=== PATIENT | female | born 1950 | race Caucasian/White ===

== ENCOUNTER 2019-01-29 07:37 | Emergency (ER) | payer MEDICARE, OTHER ==
[2019-01-29 07:42] VITALS: BP 137/68
[2019-01-29] MEDS ORDERED: SIMV-49 PO (07:45)
[2019-01-29] MEDS ORDERED: ASPI-1471 PO (07:45)
--- NOTE | 2019-01-29 07:55 | ER Report ---
History and Physical Time Seen By MD: 07:45 Hx. of Stated Complaint: FELL ON WET DRIVEWAY, CAUGHT HERSELF WITH RIGHT HAND. WOKE UP WITH LOTS OF PAIN IN RIGHT WRIST HPI/ROS CHIEF COMPLAINT: Fall right wrist and hand pain HISTORY OF PRESENT ILLNESS: Patient is a 68-year-old female who presents emergency Department status post fall yesterday with complaint of right wrist and hand pain. She is right-hand dominant. She lives in [place], however is visiting friends here in [place]. She states she fell yesterday in her garage on a wet floor. She landed on her tailbone and braced herself with her extended right hand. She is now having pain that extends from her 1st and 2nd metacarpal carpal and goes up her forearm with movement such as holding a glass or with flexion extension of the wrist. Allergies: Coded Allergies: No Known Drug Allergies (Unverified , 01/29/19) Home Meds Reported Medications Aspirin (ASPIR 81) 81 Mg Tablet.dr, 81 MG PO QDAY, TAB 01/29/19 Simvastatin (SIMVASTATIN) 20 Mg Tablet, 20 MG PO HS, TAB 01/29/19 Past Medical/Surgical History Noncontributory Constitutional Physical Exam General appearance: Alert no distress. Examination of the Right hand reveals no acute deformity. The patient is able to give a thumbs up sign, is able to make an okay sign, and is able to AB duct the fingers. Sensation is intact over the dorsal 1st web space, the volar aspect of the 2nd finger, and the volar aspect of the 5th finger. Capillary refill is brisk. Positive Jayy's test. Negative snuffbox tenderness. Medical Decision Making EKG/Imaging Imaging X-ray of right hand and right wrist shows no acute bony injury. ED Course/Re-evaluation ED Course 01/29/2019 7:55:36 am plan at this time will be x-ray of right hand and right wrist. 01/29/2019 8:38:57 am shows unremarkable. We'll place patient in a thumb spica splint and have patient perform range of motion exercises. Procedure: Splint placement. A short arm thumb spica splint was applied. After application of the splint I returned and re-examined the patient. The splint was adequately immobilizing the joint and distal to the splint the patient's circulation and sensation was intact. Decision to Disposition Date: Jan 29, 2019 Decision to Disposition Time: 08:35 Depart Departure Latest Vital Signs Impression: Primary Impression: Wrist sprain Condition: Improved Disposition: HOME OR SELF-CARE Patient Instructions: Splint Care (ED), Wrist Sprain (DC) Additional Instructions: Follow-up with your primary care provider in 7-10 days if your pain persists for reevaluation. Wear your splint as needed for comfort. You should take the splint off 3-4 times per day to perform range of motion exercises for 5 or 10 minutes. You may discontinue use of the splint when you are feeling improved. Problem Qualifiers Primary Impression: Wrist sprain Encounter type: initial encounter Laterality: right Qualified Codes: S63.501A - Unspecified sprain of right wrist, initial encounter DIMITRIS DUEÑAS MD Jan 29, 2019 07:55
--- NOTE | 2019-01-29 08:31 | RADIOLOGY IMAGING REPORT ---
[place] [facility] [place] NAME: Beatrice Levi : 1950 MR: [id number] V: [id number] EXAM DATE: ORDERING PHYSICIAN: DIMITRIS DUEÑAS TECHNOLOGIST: Location: [facility] Patient: Beatrice Levi : 1950 Visit/Account:[id number] Date of Sevice: 01/29/2019 HAND COMPLETE RIGHT Indication: fall Comparison: None. Findings: The phalanges, metacarpal common carpal bones are intact. There is severe narrowing with os teophyte formation of the DIP joints of the second and third digits. Remaining joint spaces are sada h. Alignment is maintained. There is no soft tissue swelling. IMPRESSION: 1. No evidence of fracture or dislocation. 2. 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 Report Dictated By: Arben Ramirez at 01/29/2019 8:28 AM Report E-Signed By: Arben Ramirez at 01/29/2019 8:28 AM WSN:[id number]
--- NOTE | 2019-01-29 08:32 | RADIOLOGY IMAGING REPORT ---
FACILITY: [facility] PATIENT NAME: Beatrice Levi : 1950 MR: [id number] V: [id number] EXAM DATE: ORDERING PHYSICIAN: DIMITRIS DUEÑAS TECHNOLOGIST: Location: [facility] [place] Patient: Beatrice Levi : 1950 Visit/Account:[id number] Date of Sevice: 01/29/2019 XR WRIST 3 OR MORE VIEWS RT Indication: fall Comparison: None Findings: The carpal bones and distal radius and ulnar are intact. There is no soft tissue swelling. The radiocarpal joint space demonstrates normal alignment. IMPRESSION: Normal right wrist radiograph. Report Dictated By: Arben Ramirez at 01/29/2019 8:27 AM Report E-Signed By: Arebn Ramirez at 01/29/2019 8:28 AM WSN:[id number]
== END 2019-01-29 08:44 | disposition home or self-care (01) ==
LOC: ER 07:47
DX: S63.501A Unspecified sprain of right wrist, initial encounter (principal)
CPT/HCPCS: 99284